=== PATIENT | male | born 1940 | race Caucasian/White ===

== ENCOUNTER 2017-11-18 16:54 | Observation (INO) | END 2017-11-21 13:13 | disposition home health service (06) ==

== ENCOUNTER 2018-03-15 07:51 | Day surgery (SDC) | payer MEDICARE, OTHER ==
[~2018-03-15] VITALS: Wt 76.0 kg
[~2018-03-15 07:51] MED LIST: ALLO300 PO; AMLO5 PO; ASPI325 PO; Augmentin 875-1 EACH PO; CARV25 PO; CARV3.125 PO; CARV6.25 PO; CITA20 PO; CLON.2 PO; CLON.3 PO; DILT60 PO; Desyrel50 MG PO; FURO40 PO; Klor-Con M1010 MEQ PO; LISI20 PO; LOVA40 PO; METO100ER PO; NAPR220; NIFE30ER PO; NIFE60ER; POTCHL20ER PO; SPIR25 PO; TAMS.4ER PO
[2018-03-15 09:12] LABS: BASOPHILS ABSOLUTE AUTO 0.25 K/mm3 (0.00-0.23); BASOPHILS PERCENT AUTO 1 % (0-2); EOSINOPHILS ABSOLUTE AUTO 1.13 K/mm3 (0.00-0.68); EOSINOPHILS PERCENT AUTO 5 % (0-6); Hematocrit 38.6 % (37.0-53.0); Hemoglobin 10.6 g/dL (13.5-17.5); IMMATURE GRAN ABSOLUTE AUTO 0.61 K/mm3 (0.00-0.10); IMMATURE GRAN PERCENT AUTO 3 % (0-1); LYMPHOCYTES ABSOLUTE AUTO 0.51 K/mm3 (0.84-5.20); LYMPHOCYTES PERCENT AUTO 2 % (21-46); MONOCYTES PERCENT AUTO 4 % (4-13); Mean Corpuscular HGB 18.3 pg (26.0-34.0); Mean Corpuscular HGB Conc 27.5 g/dL (31.5-36.5); Mean Corpuscular Volume 67 fL (80-100); Mean Platelet Volume 10.7 fL (9.1-12.4); NEUTROPHILS ABSOLUTE AUTO 19.62 K/mm3 (1.96-9.15); NEUTROPHILS PERCENT AUTO 86 % (41-73); NRBC ABSOLUTE 0.06 K/mm3 (0.00-0.02); NRBC Auto 0.3 /100 WBC (0.0-0.2); Platelet Count 989 K/mm3 (150-400); RDW Coefficient Variation 24.5 % (11.7-14.2); RDW Standard Deviation 52.6 fL (35.1-46.3); Red Blood Cell Count 5.78 M/mm3 (4.30-5.90); White Blood Cell Count 22.92 K/mm3 (4.00-11.30)
[2018-03-15 09:24] LABS: International Normalized Ratio 1.19; Prothrombin Time Results 12.1 Sec (9.7-11.5)
[2018-03-15] MEDS ORDERED: CLON.1 PO (09:53)
[2018-03-15 09:54] LABS: Anion Gap 12 mmol/L (6-16); Blood Urea Nitrogen 36 mg/dL (8-24); Bun/Creatinine Ratio 31.6 (12.0-20.0); CO2, Blood 18 mmol/L (21-32); Calcium, Blood 8.5 mg/dL (8.5-10.1); Chloride, Blood 112 mmol/L (98-108); Creatinine, Blood 1.14 mg/dL (0.60-1.20); Glomerular Filtration Rate >60 (60-); Glucose, Blood 148 mg/dL (70-99); Potassium, Blood 4.5 mmol/L (3.5-5.5); Sodium, Blood 142 mmol/L (136-145)
[2018-03-15] MEDS ORDERED: TAMS.4ER PO (09:54)
[2018-03-15] MEDS ORDERED: CITA20 PO (09:58)
== END 2018-03-15 17:39 | disposition home or self-care (01) ==
LOC: MHTC 07:51 → MEDS 07:51 → MHTC 07:52 → MEDS 17:39 → EDSTATUS 03-23 14:13
PROVIDERS: Internal Medicine Interventional Cardiology
PROC: 0JH604Z Insertion of Pacemaker, Single Chamber into Chest Subcutaneous Tissue and Fascia, Open Approach (ICD-10-PCS; principal; 2018-03-15)
PROC: 02HK3JZ Insertion of Pacemaker Lead into Right Ventricle, Percutaneous Approach (ICD-10-PCS; 2018-03-15)
DX: I48.2 Chronic atrial fibrillation (principal); R55 Syncope and collapse; I44.39 Other atrioventricular block; I10 Essential (primary) hypertension; E11.9 Type 2 diabetes mellitus without complications; Z87.891 Personal history of nicotine dependence
CPT/HCPCS: 33207; 71046; 80048; 85025; 85610; 85730; 93005; 93010; 99152; 99153; C1786; C1898; J0690; J1644; J2250; J3010; J7030; J7040; Q9967

== ENCOUNTER → 2018-10-23 | Outpatient (CLI) | payer MEDICARE, OTHER ==
[~2018-10-23] MED LIST changes: +CLON.1 PO
[2018-10-23 18:39] LABS: BASOPHILS ABSOLUTE AUTO 0.29 K/mm3 (0.00-0.23); BASOPHILS PERCENT AUTO 1 % (0-2); EOSINOPHILS ABSOLUTE AUTO 1.12 K/mm3 (0.00-0.68); EOSINOPHILS PERCENT AUTO 5 % (0-6); Hematocrit 44.3 % (37.0-53.0); Hemoglobin 11.6 g/dL (13.5-17.5); IMMATURE GRAN ABSOLUTE AUTO 0.57 K/mm3 (0.00-0.10); IMMATURE GRAN PERCENT AUTO 2 % (0-1); LYMPHOCYTES PERCENT AUTO 3 % (21-46); MONOCYTES PERCENT AUTO 4 % (4-13); Mean Corpuscular HGB 18.5 pg (26.0-34.0); Mean Corpuscular HGB Conc 26.2 g/dL (31.5-36.5); Mean Corpuscular Volume 71 fL (80-100); NEUTROPHILS PERCENT AUTO 85 % (41-73); NRBC ABSOLUTE 0.07 K/mm3 (0.00-0.02); NRBC Auto 0.3 /100 WBC (0.0-0.2); Platelet Count 652 K/mm3 (150-400); RDW Coefficient Variation 23.4 % (11.7-14.2); Red Blood Cell Count 6.28 M/mm3 (4.30-5.90); White Blood Cell Count 23.88 K/mm3 (4.00-11.30)
== END ==
LOC: LAB SHORT 18:09 → LAB 18:09
PROVIDERS: Internal Medicine Hematology & Oncology
DX: C94.6 Myelodysplastic disease, not elsewhere classified (principal)
CPT/HCPCS: 85025

== ENCOUNTER 2019-01-24 16:04 | Inpatient (IN) | payer MEDICARE, OTHER ==
[~2019-01-24] VITALS: Ht 170.2 cm; Wt 78.7 kg
[~2019-01-24 16:04] MED LIST changes: -Klor-Con M1010 MEQ PO; +POTCHL10ER PO
[2019-01-24 17:08] LABS: BASOPHILS ABSOLUTE AUTO 0.19 K/mm3 (0.00-0.23); BASOPHILS PERCENT AUTO 1 % (0-2); EOSINOPHILS ABSOLUTE AUTO 1.09 K/mm3 (0.00-0.68); EOSINOPHILS PERCENT AUTO 4 % (0-6); Hemoglobin 7.8 g/dL (13.5-17.5); IMMATURE GRAN PERCENT AUTO 4 % (0-1); LYMPHOCYTES ABSOLUTE AUTO 0.37 K/mm3 (0.84-5.20); LYMPHOCYTES PERCENT AUTO 1 % (21-46); MONOCYTES ABSOLUTE AUTO 0.95 K/mm3 (0.16-1.47); MONOCYTES PERCENT AUTO 3 % (4-13); Mean Corpuscular HGB 17.6 pg (26.0-34.0); Mean Corpuscular Volume 68 fL (80-100); NEUTROPHILS ABSOLUTE AUTO 27.66 K/mm3 (1.96-9.15); NEUTROPHILS PERCENT AUTO 88 % (41-73); Platelet Count 721 K/mm3 (150-400); RDW Coefficient Variation 24.5 % (11.7-14.2); RDW Standard Deviation 56.7 fL (35.1-46.3); Red Blood Cell Count 4.43 M/mm3 (4.30-5.90); White Blood Cell Count 31.36 K/mm3 (4.00-11.30)
[2019-01-24 17:16] LABS: Albumin, Blood 3.6 g/dL (3.4-5.0); Albumin/Globulin Ratio 1.1 (0.8-1.8); Bilirubin, Total 1.1 mg/dL (0.1-1.0); Bun/Creatinine Ratio 35.7 (12.0-20.0); Calcium, Blood 8.7 mg/dL (8.5-10.1); Creatinine, Blood 1.4 mg/dL (0.60-1.20); Globulin, Blood 3.3 g/dL (2.2-4.0); Potassium, Blood 6.7 mmol/L (3.5-5.5); Total Protein, Blood 6.9 g/dL (6.4-8.2)
[2019-01-24 17:40] LABS: Mean Platelet Volume 11.5 fL (9.1-12.4)
[2019-01-24] MEDS ORDERED: [UNRECOGNIZED DRUG - CODE] PO (18:20)
[2019-01-24] MEDS ORDERED: [UNRECOGNIZED DRUG - CODE] PO (18:22)
[2019-01-24] MEDS ORDERED: [UNRECOGNIZED DRUG - CODE] PO (18:28)
[2019-01-24 19:01] LABS: Creatine Kinase MB 2.6 ng/mL (0.0-3.6); Creatine Kinase MB Index 9.6 (0.0-4.0)
[2019-01-24] MEDS ORDERED: NAPR220 PO (19:02)
[2019-01-24] MEDS ORDERED: ALPR.5 PO (19:04)
--- NOTE | 2019-01-24 21:00 | NUR ---
ADMIT PT ARRIVED TO ICU 15 AT 2024 VIA ER BED. PT TRANSFER TO ICU BED. PT IS ALERT, ORIENTED, AND FOLLOWING COMMANDS APPROPRIATELY. PT IS HARD OF HEARING. PT ON ROOM AIR. VITAL SIGNS STABLE. PT WITH PACEMAKER SET AT 60. 2ND IV STARTED AND BLOOD CULTURES DRAWN FROM SITE. NS STARTED AT 125 ML/HR. PT USING URINAL TO VOID WHILE LAYING IN BED. PT WITH LEFT KNEE BRACE ON. FAMILY AT BEDSIDE AT THIS TIME. WILL CONTINUE TO MONITOR.
[2019-01-24 22:33] LABS: Albumin, Blood 3.6 g/dL (3.4-5.0); Albumin/Globulin Ratio 1.2 (0.8-1.8); Bun/Creatinine Ratio 34.5 (12.0-20.0); Calcium, Blood 8.9 mg/dL (8.5-10.1); Creatinine, Blood 1.39 mg/dL (0.60-1.20); Globulin, Blood 2.9 g/dL (2.2-4.0); Magnesium, Blood 2.1 mg/dL (1.6-2.4); Potassium, Blood 5.8 mmol/L (3.5-5.5); Total Protein, Blood 6.5 g/dL (6.4-8.2)
[2019-01-24 22:35] LABS: Phosphorus, Blood 3.6 mg/dL (2.5-4.9)
--- NOTE | 2019-01-24 23:50 | NUR ---
DR EZIO HOLGUIN CONSULT CALLED. MULTIPLE NEW ORDERS RECIEVED. SEE ORDER HISTORY. EZIO TO SEE PT IN AM.
[2019-01-25 03:01] LABS: BASOPHILS ABSOLUTE AUTO 0.22 K/mm3 (0.00-0.23); BASOPHILS PERCENT AUTO 1 % (0-2); EOSINOPHILS ABSOLUTE AUTO 0.86 K/mm3 (0.00-0.68); EOSINOPHILS PERCENT AUTO 3 % (0-6); Hematocrit 29.9 % (37.0-53.0); Hemoglobin 7.8 g/dL (13.5-17.5); IMMATURE GRAN ABSOLUTE AUTO 1.19 K/mm3 (0.00-0.10); IMMATURE GRAN PERCENT AUTO 4 % (0-1); LYMPHOCYTES ABSOLUTE AUTO 0.33 K/mm3 (0.84-5.20); LYMPHOCYTES PERCENT AUTO 1 % (21-46); MONOCYTES PERCENT AUTO 4 % (4-13); Mean Corpuscular HGB 17.5 pg (26.0-34.0); Mean Corpuscular HGB Conc 26.1 g/dL (31.5-36.5); Mean Corpuscular Volume 67 fL (80-100); NEUTROPHILS PERCENT AUTO 88 % (41-73); NRBC ABSOLUTE 0.27 K/mm3 (0.00-0.02); NRBC Auto 0.8 /100 WBC (0.0-0.2); Platelet Count 692 K/mm3 (150-400); RDW Coefficient Variation 25.2 % (11.7-14.2); RDW Standard Deviation 55.8 fL (35.1-46.3); Red Blood Cell Count 4.45 M/mm3 (4.30-5.90)
[2019-01-25 03:08] LABS: Mean Platelet Volume 10.9 fL (9.1-12.4)
[2019-01-25 03:21] LABS: CPK Creatine Kinase 28 U/L (39-308); Creatine Kinase MB 2.8 ng/mL (0.0-3.6); Troponin I <0.015 ng/mL (0.000-0.040)
[2019-01-25 03:34] LABS: Alanine Aminotransfer (ALT/SGP 19 U/L (12-78); Albumin, Blood 3.6 g/dL (3.4-5.0); Albumin/Globulin Ratio 1.2 (0.8-1.8); Alk Phos 142 U/L (50-136); Anion Gap 6 mmol/L (6-16); Aspartate Aminotrans (AST/SGOT 14 U/L (12-37); Bilirubin, Total 1.3 mg/dL (0.1-1.0); Blood Urea Nitrogen 46 mg/dL (8-24); Bun/Creatinine Ratio 32.4 (12.0-20.0); CO2, Blood 20 mmol/L (21-32); Calcium, Blood 8.8 mg/dL (8.5-10.1); Chloride, Blood 113 mmol/L (98-108); Creatinine, Blood 1.42 mg/dL (0.60-1.20); Glomerular Filtration Rate 51 (60-); Glucose, Blood 103 mg/dL (70-99); Potassium, Blood 6.1 mmol/L (3.5-5.5); Sodium, Blood 139 mmol/L (136-145); Total Protein, Blood 6.6 g/dL (6.4-8.2)
--- NOTE | 2019-01-25 05:49 | NUR ---
SHIFT SUMMARY PT DOING BETTER THIS AM. PT WITH INCREASING WORK OF BREATHING FOR SOME TIME THIS SHIFT. IV FLUIDS DC'D AND PT RECIEVED BUMEX IV. PT REPORTS LESS SOB AT THIS TIME. PT HAS REMAINED ALERT, ORIENTED, AND AWAKE THROUGHOUT THE SHIFT. PT RESTLESS AND FIDGETING IN BED. PT HAS DENIED PAIN OR DISCOMFORT. PT ON 3L O2 NC. VITAL SIGNS HAVE REMAINED STABLE. PT USING URINAL TO VOID FREQUENTLY. LEFT KNEE BRACE REMAINS IN PLACE. WILL CONTINUE TO MONITOR AND REPORT OFF TO ONCOMING RN.
--- NOTE | 2019-01-25 07:45 | NUR ---
DR. HOLGUIN CALL TO DR. HOLGUIN WITH POTASSIUM LEVEL. ORDERS TO REPEAT LEVEL AT 1300 AND CALL HIM WITH RESULTS. NO ADDITIONAL ORDERS RECEIVED AT THIS TIME.
--- NOTE | 2019-01-25 08:00 | NUR ---
ASSUMED CARE ASSUMED CARE OF PT AT 0700. REPORT RECEIVED FROM ANA SCHULTZ. PT AROUSES TO VERBAL STIMULUS, VERY HARD OF HEARING. PT ORIENTED X4, FOLLOWING DIRECTIONS APPROPRIATELY. PT DENIES ANY PAIN, NAUSEA, SHORTNESS OF BREATH. MONITOR SHOWS SINUS RHYTHM WITH HR 70'S, BP ELEVATED 170'S SYSTOLIC, SPO2 >92% ON 2L/MIN NC. PT HAS PIV X2 SALINE LOCKED. PT HAS BRACE TO LEFT KNEE WHICH HE WEARS AT HOME. CALL LIGHT WITHIN REACH OF PT, INSTRUCTED TO CALL FOR ASSISTANCE BEFORE AMBULATING. WILL CONTINUE TO MONITOR PT CLOSELY.
--- NOTE | 2019-01-25 11:20 | NUR ---
ECHOCARDIOGRAM COMPLETE
[2019-01-25 11:54] LABS: CPK Creatine Kinase 25 U/L (39-308); Creatine Kinase MB 2.4 ng/mL (0.0-3.6); Creatine Kinase MB Index 9.6 (0.0-4.0); Troponin I <0.015 ng/mL (0.000-0.040)
--- NOTE | 2019-01-25 12:40 | NUR ---
DR. HOLGUIN/DR. LYNN HOLGUIN NOTIFIED OF POTASSIUM LEVEL, PT ASKING TO BE DISCHARGED. DR. HOLGUIN STATES FOR LISINOPRIL TO BE DC'D AND FOR PT TO FOLLOW UP WITH HIM IN THE OFFICE ON TUESDAY. DR. BAILEY ROUNDED ON PT AT THIS TIME, STATES HE WILL PUT IN ORDERS FOR DISCHARGE. PT UPDATED.
[2019-01-25] MEDS ORDERED: ACET325 PO (13:43)
[2019-01-25] MEDS ORDERED: NICO21TP TOP (13:44)
[2019-01-25] MEDS ORDERED: ONDA4ODT MM (13:44)
[2019-01-25] MEDS ORDERED: HYDR10 PO (13:44)
[2019-01-25] MEDS ORDERED: ATOR40TA PO (13:47)
--- NOTE | 2019-01-25 14:30 | NUR ---
DISCHARGE DISCHARGE INSTRUCTIONS PROVIDED TO PT, PT'S , AND PT'S SON AT BEDSIDE. PT DISCHARGED TO HOME WITH SON AND . ALL QUESTIONS ANSWERED. APPOINTMENT INFO GIVEN FOR F/U WITH DR. HOLGUIN TUESDAY AT 1100.
== END 2019-01-25 14:34 | disposition home or self-care (01) | DRG 640 ==
LOC: ER 16:04 → ICUW 18:37
PROVIDERS: Internal Medicine Nephrology; Physician Assistant; ADMIT Family Medicine
DX: E87.5 Hyperkalemia (principal); N17.0 Acute kidney failure with tubular necrosis; I50.32 Chronic diastolic (congestive) heart failure; I13.0 Hypertensive heart and chronic kidney disease with heart failure and stage 1 through stage 4 chronic kidney disease, or unspecified chronic kidney disease; E87.2 Acidosis; I70.1 Atherosclerosis of renal artery; J44.9 Chronic obstructive pulmonary disease, unspecified; E11.22 Type 2 diabetes mellitus with diabetic chronic kidney disease; Z85.46 Personal history of malignant neoplasm of prostate; Z92.3 Personal history of irradiation; M19.90 Unspecified osteoarthritis, unspecified site; F17.228 Nicotine dependence, chewing tobacco, with other nicotine-induced disorders; I48.91 Unspecified atrial fibrillation; D46.9 Myelodysplastic syndrome, unspecified; M10.9 Gout, unspecified; G47.33 Obstructive sleep apnea (adult) (pediatric); N18.3 Chronic kidney disease, stage 3 (moderate); E87.70 Fluid overload, unspecified
CPT/HCPCS: 36415; 71046; 76770; 80053; 82550; 82553; 83605; 83735; 84100; 84132; 84145; 84443; 84484; 85025; 93005; 93010; 93306; 96372-59; 96374; 96375; 99285-25; C9113; G0103; J0610; J0881; J1650; J1815; J7030

== ENCOUNTER 2019-02-11 14:16 | Inpatient (IN) | payer MEDICARE, OTHER ==
[~2019-02-11] VITALS: Ht 170.2 cm; Wt 79.8 kg
[~2019-02-11 14:16] MED LIST changes: +ACET325 PO; +ALPR.5 PO; +ATOR40TA PO; +HYDR10 PO; +NAPR220 PO; +NICO21TP TOP; +ONDA4ODT MM; +[UNRECOGNIZED DRUG - CODE] PO; +[UNRECOGNIZED DRUG - CODE] PO; +[UNRECOGNIZED DRUG - CODE] PO
[2019-02-11 14:59] LABS: Hemoglobin 6.3 g/dL (13.5-17.5); NRBC ABSOLUTE 0.18 K/mm3 (0.00-0.02); NRBC Auto 0.7 /100 WBC (0.0-0.2); Platelet Count 993 K/mm3 (150-400); White Blood Cell Count 26.75 K/mm3 (4.00-11.30)
[2019-02-11 15:05] LABS: Hematocrit 24.4 % (37.0-53.0); Mean Corpuscular HGB 17.4 pg (26.0-34.0); Mean Corpuscular HGB Conc 25.8 g/dL (31.5-36.5); Mean Corpuscular Volume 67 fL (80-100); Mean Platelet Volume 11.3 fL (9.1-12.4); RDW Coefficient Variation 24.9 % (11.7-14.2); RDW Standard Deviation 56.4 fL (35.1-46.3); Red Blood Cell Count 3.63 M/mm3 (4.30-5.90)
[2019-02-11 15:06] LABS: Alanine Aminotransfer (ALT/SGP 25 U/L (12-78); Albumin, Blood 3.2 g/dL (3.4-5.0); Alk Phos 141 U/L (50-136); Anion Gap 6 mmol/L (6-16); Aspartate Aminotrans (AST/SGOT 25 U/L (12-37); Bilirubin, Total 0.8 mg/dL (0.1-1.0); Blood Urea Nitrogen 40 mg/dL (8-24); CO2, Blood 22 mmol/L (21-32); Calcium, Blood 8.7 mg/dL (8.5-10.1); Chloride, Blood 108 mmol/L (98-108); Creatinine, Blood 1.08 mg/dL (0.60-1.20); Globulin, Blood 3.2 g/dL (2.2-4.0); Glomerular Filtration Rate >60 (60-); Glucose, Blood 99 mg/dL (70-99); Potassium, Blood 4.9 mmol/L (3.5-5.5); Sodium, Blood 136 mmol/L (136-145); Total Protein, Blood 6.4 g/dL (6.4-8.2)
[2019-02-11 15:11] LABS: International Normalized Ratio 1.17; Prothrombin Time Results 12.2 Sec (9.7-11.5)
[2019-02-11] MEDS ORDERED: VITAMIN D5000 UNIT PO (15:16)
[2019-02-11 16:18] LABS: BAND PERCENT MAN 6 % (0-8); BASOPHILS PERCENT MAN 0 % (0-2); EOSINOPHILS ABSOLUTE MAN 1.33 K/mm3 (0.00-0.68); EOSINOPHILS PERCENT MAN 5 % (0-6); LYMPHOCYTES ABSOLUTE MAN 0.53 K/mm3 (0.84-5.20); LYMPHOCYTES PERCENT MAN 2 % (21-46); METAMYELOCYTE ABSOLUTE MAN 0.26 K/mm3 (0.00-0.00); METAMYELOCYTE PERCENT MAN 1 % (0-0); MONOCYTES ABSOLUTE MAN 0.26 K/mm3 (0.16-1.47); MONOCYTES PERCENT MAN 1 % (4-13); MYELOCYTE ABSOLUTE MAN 0.26 K/mm3 (0.00-0.00); MYELOCYTE PERCENT MAN 1 % (0-0); NEUTROPHILS ABSOLUTE MAN 24.07 K/mm3 (1.96-9.15); SEG NEUTROPHILS PERCENT MAN 84 % (41-73); TOTAL CELLS COUNTED 100
[2019-02-11 18:42] LABS: Hemoglobin 6.8 g/dL (13.5-17.5)
[2019-02-11 18:43] LABS: Hematocrit 25.9 % (37.0-53.0)
--- NOTE | 2019-02-11 19:35 | NUR ---
FINISHED FIRST UNIT OF BLOOD PT VITALS DOCUMENTED ON ED PAPER IN CHART. INPUT ON PUMP DOCUMENTED IN INTAKE & OUTPUT. PT TOLERATED WELL. NO NEGATIVE REACTIONS
--- NOTE | 2019-02-11 19:37 | NUR ---
TRANSFER NOTE PT TRANSFERED FROM ED. PT RECEIVING UNIT OF BLOOD, BEGAN IN ED. 78 YR OLD MALE. FULL CODE. HX:BLACK TARRY STOOLS. GI CONSULT W/DR. IGLESIAS WHO WILL PERFORM AN UPPER AND LOWER ENDOSCOPY. PT SEVERELY ANEMIC, MAY HAVE GI BLEED. DIVERTICULITIS NOTICED ON CT SCAN. PT ORIENTED TO UNIT. CALL LIGHT WITHIN REACH. IS HEALTH CARE PROXY. 1 STANDBY ASSIST TO BSC. PT IS VERY WEAK. HX: HTN, COPD, CKD, CHF, GOUT, DM 2. ACHS. CPAP AT HOME.
[2019-02-12 01:09] LABS: Hematocrit 27.4 % (37.0-53.0); Hemoglobin 7.4 g/dL (13.5-17.5)
--- NOTE | 2019-02-12 07:38 | NUR ---
02/12/19 0600 AWAKENED FOR AM MED. STATES HE SLEPT WELL AND GENERALLY FEELS BETTER THIS AM. VITALS STABLE. NO STOOLS OR EMESIS THIS SHIFT. HAS RECEIVED 2 UNITS OF PRBCS SINCE ADMISSSION.
[2019-02-12 07:58] LABS: Hematocrit 30.4 % (37.0-53.0); Hemoglobin 7.7 g/dL (13.5-17.5); Mean Corpuscular HGB 18.9 pg (26.0-34.0); Mean Corpuscular HGB Conc 25.3 g/dL (31.5-36.5); NRBC ABSOLUTE 0.28 K/mm3 (0.00-0.02); NRBC Auto 0.8 /100 WBC (0.0-0.2); Platelet Count 865 K/mm3 (150-400); RDW Coefficient Variation 25.9 % (11.7-14.2); RDW Standard Deviation 64.6 fL (35.1-46.3); Red Blood Cell Count 4.08 M/mm3 (4.30-5.90)
[2019-02-12 08:15] LABS: Mean Corpuscular Volume 75 fL (80-100)
[2019-02-12 08:41] LABS: Magnesium, Blood 2.2 mg/dL (1.6-2.4)
[2019-02-12 08:45] LABS: Alanine Aminotransfer (ALT/SGP 21 U/L (12-78); Albumin, Blood 3.3 g/dL (3.4-5.0); Alk Phos 144 U/L (50-136); Anion Gap 8 mmol/L (6-16); Aspartate Aminotrans (AST/SGOT 16 U/L (12-37); Blood Urea Nitrogen 38 mg/dL (8-24); Bun/Creatinine Ratio 31.7 (12.0-20.0); CO2, Blood 22 mmol/L (21-32); Calcium, Blood 8.2 mg/dL (8.5-10.1); Chloride, Blood 107 mmol/L (98-108); Globulin, Blood 3.2 g/dL (2.2-4.0); Glomerular Filtration Rate >60 (60-); Glucose, Blood 104 mg/dL (70-99); Potassium, Blood 5.1 mmol/L (3.5-5.5); Sodium, Blood 137 mmol/L (136-145); Total Protein, Blood 6.5 g/dL (6.4-8.2)
[2019-02-12 09:08] LABS: BASOPHILS ABSOLUTE MAN 0.33 K/mm3 (0.00-0.23); BASOPHILS PERCENT MAN 1 % (0-2); BLASTS PERCENT MAN 1 % (0-0); EOSINOPHILS ABSOLUTE MAN 0.67 K/mm3 (0.00-0.68); EOSINOPHILS PERCENT MAN 2 % (0-6); LYMPHOCYTES ABSOLUTE MAN 0.33 K/mm3 (0.84-5.20); LYMPHOCYTES PERCENT MAN 1 % (21-46); MONOCYTES ABSOLUTE MAN 1.01 K/mm3 (0.16-1.47); MONOCYTES PERCENT MAN 3 % (4-13); MYELOCYTE ABSOLUTE MAN 0.67 K/mm3 (0.00-0.00); MYELOCYTE PERCENT MAN 2 % (0-0); NEUTROPHILS ABSOLUTE MAN 30.33 K/mm3 (1.96-9.15); SEG NEUTROPHILS PERCENT MAN 90 % (41-73); TOTAL CELLS COUNTED 100
[2019-02-12 13:25] LABS: Hematocrit 28.6 % (37.0-53.0); Hemoglobin 7.5 g/dL (13.5-17.5)
--- NOTE | 2019-02-12 17:43 | NUR ---
HE HAD A CL BREAKFAST AFTER SLEEPING IN. HE THEN HAD IE/WATER ONLY UNTIL 1300, THEN NPO. HE LEFT FOR AN EGD AT 1715. AND SON WENT WITH HIM TO DAY SURGERY. HE DID NOT ANSWER CLEARLY WHAT PROCEDURE HE IS GOING FOR. HE HAS SLEPT ALL DAY. HE IS PLEASANT. HE WAS INCONTINENT OF URINE. NO BM TODAY.
--- NOTE | 2019-02-12 18:07 | NUR ---
02/12/19 1807 Misael Mckeon History, Chart, Medications and Allergies reviewed before start of procedure.MONITOR INTACT WITH CONTINUOUS PULSE OXIMETRY AND INTERMITTENT BP.3-LEAD EKG REVIEWED WITH PHYSICIAN PRIOR TO START OF PROCEDURE.O2 VIA N/C INTACT THROUGHOUT SEDATION/PROCEDURE. Patient confirms NPO status and agrees with scheduled surgery.See Anesthesia record.
--- NOTE | 2019-02-12 19:34 | NUR ---
RETURNED TO FROM DAY SURGERY AT 1850. VSS. O2 FLOW 6L THOUGH. FAMILY HAS LEFT BUT NOT BEFORE CAME AND SPOKE WITH THEM. NO ABNORMALITIES SEEN. BOWELL PREP FOR A COLONOSCOPY WILL START IN AM.
--- NOTE | 2019-02-13 05:19 | NUR ---
LEISURE STUDIES PROFESSOR SUMMARY NO ACUTE CHANGES THIS SHIFT. PT AAOX2, PLEASANT AND COOPERATIVE WITH CARE. 1 PERSON ASSIST W/ FWW TO BATHROOM. PT REQUIRING MORE O2 AFTER BEING SEDATED DURING ENDO. PT WAS AT 6L O2 VIA NC AT START OF SHIFT, HAVE BEEN ABLE TO TITRATE DOWN TO 4L TONIGHT. O2 SATS STAYING ABOVE 90%. PT ON WATER AND ICE CHIPS ONLY STARTING AT 0500 AND WILL BE NPO AT 1400 FOR COLONOSCOPY. WILL START BOWEL PREP AT 0700. VSS, WILL CONTINUE TO MONITOR.
[2019-02-13 05:32] LABS: BASOPHILS ABSOLUTE AUTO 0.25 K/mm3 (0.00-0.23); BASOPHILS PERCENT AUTO 1 % (0-2); EOSINOPHILS ABSOLUTE AUTO 0.44 K/mm3 (0.00-0.68); EOSINOPHILS PERCENT AUTO 1 % (0-6); Hematocrit 28.1 % (37.0-53.0); Hemoglobin 7.3 g/dL (13.5-17.5); IMMATURE GRAN ABSOLUTE AUTO 1.83 K/mm3 (0.00-0.10); IMMATURE GRAN PERCENT AUTO 5 % (0-1); LYMPHOCYTES PERCENT AUTO 2 % (21-46); MONOCYTES ABSOLUTE AUTO 1.37 K/mm3 (0.16-1.47); MONOCYTES PERCENT AUTO 4 % (4-13); Mean Corpuscular HGB 18.6 pg (26.0-34.0); Mean Platelet Volume 11.3 fL (9.1-12.4); NEUTROPHILS ABSOLUTE AUTO 32.45 K/mm3 (1.96-9.15); NEUTROPHILS PERCENT AUTO 88 % (41-73); NRBC ABSOLUTE 0.38 K/mm3 (0.00-0.02); RDW Standard Deviation 63.3 fL (35.1-46.3); Red Blood Cell Count 3.92 M/mm3 (4.30-5.90); White Blood Cell Count 36.94 K/mm3 (4.00-11.30)
[2019-02-13 05:34] LABS: Mean Corpuscular Volume 72 fL (80-100)
[2019-02-13 05:35] LABS: Platelet Count 1056 K/mm3 (150-400)
[2019-02-13 06:04] LABS: BAND PERCENT MAN 2 % (0-8); BASOPHILS PERCENT MAN 0 % (0-2); EOSINOPHILS ABSOLUTE MAN 1.47 K/mm3 (0.00-0.68); EOSINOPHILS PERCENT MAN 4 % (0-6); LYMPHOCYTES ABSOLUTE MAN 0.36 K/mm3 (0.84-5.20); LYMPHOCYTES PERCENT MAN 1 % (21-46); MONOCYTES ABSOLUTE MAN 0.36 K/mm3 (0.16-1.47); MONOCYTES PERCENT MAN 1 % (4-13); MYELOCYTE ABSOLUTE MAN 0.36 K/mm3 (0.00-0.00); MYELOCYTE PERCENT MAN 1 % (0-0); NEUTROPHILS ABSOLUTE MAN 34.35 K/mm3 (1.96-9.15); SEG NEUTROPHILS PERCENT MAN 91 % (41-73); TOTAL CELLS COUNTED 100
[2019-02-13 06:11] LABS: Albumin, Blood 3.3 g/dL (3.4-5.0); Albumin/Globulin Ratio 1.1 (0.8-1.8); Bilirubin, Total 0.7 mg/dL (0.1-1.0); Creatinine, Blood 1.86 mg/dL (0.60-1.20); Globulin, Blood 3.1 g/dL (2.2-4.0); Potassium, Blood 5.1 mmol/L (3.5-5.5); Total Protein, Blood 6.4 g/dL (6.4-8.2)
--- NOTE | 2019-02-13 08:34 | NUR ---
ivf rate increased to 100/hr. drinking his 4th glass of colyte. no results yet.
[2019-02-13 16:37] LABS: IMMATURE RETIC FRACTION 27.9 % (2.3-16.0); RETIC HGB EQUIVALENT 16.7 pg (28.20-36.60); RETICULOCYTE ABSOLUTE 0.101 M/mm3 (0.0200-0.1100); RETICULOCYTE COUNT PERCENT 3.73 % (0.50-2.50)
--- NOTE | 2019-02-13 16:48 | NUR ---
HE FINISHED HIS COLYTE ABOUT NOON, DRINKING EVERY BIT. HE IS NOT CLEAR THOUGH. I TRIED CALLING 'S CELL PHONE. NO ANSWER. HE IS IN A PROCEDURE. LEFT WITH DIANN IN DAY SURGERY. SHE WILL LET KNOW THAT QUANG IS NOT CLEAR. HE REMAINS NPO SINCE 1400.
[2019-02-13 16:51] LABS: Percent Saturation 23.1 % (20.0-50.0)
--- NOTE | 2019-02-13 18:50 | NUR ---
HIS COLONOSCOPY WAS CANCELLED BECAUSE AFTER COMPLETING HIS GALLON OF COLYTE HE WAS NOT CLEAR. CAME TO SPEAK WITH HIM AND HIS FAMILY. HE TOLD THEM WE WOULD FEED HIM SOME PUDDING AND THINGS BUT HAS NOT LEFT NEW ORDERS YET. ALSO I BELIEVE SPOKE WITH ON THE PHONE. PATIENT HAS SEEN A REGISTERED ART THERAPIST OUTPT AND HAS ANOTHER APPT THE OF THIS MONTH. I UNIT OF BLOOD ALSO GIVEN TODAY WITHOUT ANY PROBLEMS.
--- NOTE | 2019-02-14 03:57 | NUR ---
SHIFT SUMMARY: 78 Y/O MALE RESTED COMFORTABLY ALL EVENING. PT WEARING O2 VIA OXIMETER WITH SATS AVERAGING 95%. PT ALERT AND ORIENTED X 3 AND ABLE TO FOLLOW ALL SIMPLE VERBAL COMMANDS. PT TOLERATED FULL LIQUID DIET TONIGHT AND SCHEDULED CLEAR LIQUID DIET TODAY. PT AND FAMILY ARE AWARE OF COLONOSCOPY RESCHEDULED TO TUESDAY PM. PTS TELEMETRY REFLECTS A-FIB WITH HEART RATE 76, OCCASIONALLY PACED AT 68. PT HAD ONCE LOOSE WATERY BLACK STOOL THIS SHIFT, MODERATE AMOUNT. PT DENIES PAIN OR NAUSEA. PTS BED ALARM APPLIED, BED LOW POSITION, CALL LIGHT AT SIDE.
[2019-02-14 05:37] LABS: BASOPHILS ABSOLUTE AUTO 0.29 K/mm3 (0.00-0.23); BASOPHILS PERCENT AUTO 1 % (0-2); EOSINOPHILS ABSOLUTE AUTO 0.66 K/mm3 (0.00-0.68); EOSINOPHILS PERCENT AUTO 2 % (0-6); Hemoglobin 8.3 g/dL (13.5-17.5); IMMATURE GRAN ABSOLUTE AUTO 1.91 K/mm3 (0.00-0.10); IMMATURE GRAN PERCENT AUTO 5 % (0-1); LYMPHOCYTES ABSOLUTE AUTO 0.48 K/mm3 (0.84-5.20); LYMPHOCYTES PERCENT AUTO 1 % (21-46); MONOCYTES PERCENT AUTO 4 % (4-13); NEUTROPHILS ABSOLUTE AUTO 33.79 K/mm3 (1.96-9.15); NEUTROPHILS PERCENT AUTO 87 % (41-73); NRBC Auto 1.3 /100 WBC (0.0-0.2); White Blood Cell Count 38.83 K/mm3 (4.00-11.30)
[2019-02-14 05:44] LABS: Hematocrit 30.2 % (37.0-53.0); Mean Corpuscular HGB 19.5 pg (26.0-34.0); Mean Corpuscular HGB Conc 27.5 g/dL (31.5-36.5); Mean Corpuscular Volume 71 fL (80-100); RDW Coefficient Variation 26.6 % (11.7-14.2); RDW Standard Deviation 64.4 fL (35.1-46.3); Red Blood Cell Count 4.25 M/mm3 (4.30-5.90)
[2019-02-14 05:46] LABS: Platelet Count 1006 K/mm3 (150-400)
[2019-02-14 06:08] LABS: Albumin, Blood 3.2 g/dL (3.4-5.0); Bilirubin, Total 0.6 mg/dL (0.1-1.0); Bun/Creatinine Ratio 31.2 (12.0-20.0); Calcium, Blood 7.7 mg/dL (8.5-10.1); Creatinine, Blood 1.73 mg/dL (0.60-1.20); Globulin, Blood 3.1 g/dL (2.2-4.0); Potassium, Blood 4.9 mmol/L (3.5-5.5); Total Protein, Blood 6.3 g/dL (6.4-8.2)
--- NOTE | 2019-02-14 12:40 | NUR ---
PT TO HAVE COLONOSCOPY 02/15/19 [address]WE[address] SCHNEIDER. PREP TO BE STARTED IN A.M. AND TO BE TAKEN UNTIL CLEAR RESULTS ARE PRESENT.
--- NOTE | 2019-02-14 18:41 | NUR ---
SHIFT SUMMARY QUIET, PLEASANT. OOB TO CHAIR 1 ASSIST. USING URINAL INCONTINENT AT TIMES. DISCHARGE PLAN HOME HEALTH. PT'S NIECE IS CONCERNED THAT PT WILL BE UNABLE TO GO HOME ALONE SHE LIVES OUT OF STATE. JEFF (MASON LINER AWARE) PT DENIES ANY PAIN OR OTHER C/O.
--- NOTE | 2019-02-14 18:47 | NUR ---
SHIFT SUMMARY CONFUSED AT TIMES. OOB TO CHAIR 1 ASSIST. 6L PER OXIMIZER O2 SATS 95%. PT DENIES ANY PAIN. TELE PACED @72 ATRIAL FLUTTER. CHRONIC ELEVATED WBS FOR PAST SEVERAL YEARS. WILL PREP FOR COLONOSCOPY IN A.M. COLONOSCOPY SCHEDULED FOR 4-6PM WITH DR. SCHNEIDER.
--- NOTE | 2019-02-14 22:20 | NUR ---
1930 PTS IV IN RIGHT WRIST NOTED TO BE SQ WITH LARGE AMOUNT EDEMA AT FOREARM/SHOULDER NOTED (REDDENED AREA NOTED INNER ASPECT OF ELBOW 3 X 3 CM). THIS NURSE REMOVED ENTIRE CATHETER INTACT AND APPLIED PRESSURE DRESSING. LIBRADO GONZALEZ RN, CHARGE NURSE ADVISED. PTS RIGHT ARM ELEVATED ON PILLOW. PT ABLE TO MOVE ALL FINGERS AND WRIST (NO RINGS WORN AT THIS TIME).
[2019-02-15 05:01] LABS: BASOPHILS ABSOLUTE AUTO 0.27 K/mm3 (0.00-0.23); BASOPHILS PERCENT AUTO 1 % (0-2); EOSINOPHILS ABSOLUTE AUTO 0.67 K/mm3 (0.00-0.68); EOSINOPHILS PERCENT AUTO 2 % (0-6); Hematocrit 28.2 % (37.0-53.0); Hemoglobin 7.7 g/dL (13.5-17.5); Mean Corpuscular HGB 19.6 pg (26.0-34.0); Mean Corpuscular HGB Conc 27.3 g/dL (31.5-36.5); Mean Corpuscular Volume 72 fL (80-100); NRBC ABSOLUTE 0.21 K/mm3 (0.00-0.02); NRBC Auto 0.7 /100 WBC (0.0-0.2); Platelet Count 765 K/mm3 (150-400); RDW Coefficient Variation 26.9 % (11.7-14.2); RDW Standard Deviation 66.6 fL (35.1-46.3); Red Blood Cell Count 3.92 M/mm3 (4.30-5.90); White Blood Cell Count 32.23 K/mm3 (4.00-11.30)
[2019-02-15 05:04] LABS: IMMATURE GRAN ABSOLUTE AUTO 1.52 K/mm3 (0.00-0.10); IMMATURE GRAN PERCENT AUTO 5 % (0-1); LYMPHOCYTES ABSOLUTE AUTO 0.49 K/mm3 (0.84-5.20); LYMPHOCYTES PERCENT AUTO 2 % (21-46); MONOCYTES ABSOLUTE AUTO 1.42 K/mm3 (0.16-1.47); MONOCYTES PERCENT AUTO 4 % (4-13); NEUTROPHILS ABSOLUTE AUTO 27.86 K/mm3 (1.96-9.15); NEUTROPHILS PERCENT AUTO 87 % (41-73)
[2019-02-15 05:29] LABS: Bun/Creatinine Ratio 33.5 (12.0-20.0); Calcium, Blood 7.8 mg/dL (8.5-10.1); Creatinine, Blood 1.58 mg/dL (0.60-1.20); Potassium, Blood 4.5 mmol/L (3.5-5.5)
--- NOTE | 2019-02-15 07:59 | NUR ---
SHIFT SUMMARY: 78 Y/O MALE VERY RESTLESS ALL NIGHT WITH MULTIPLE ATTEMPTS TO CLIMB OOB, REMOVING GOWN/TELEMETRY. PT IS ALERT AND ORIENTED X 1 ONLY WITH FREQUENT REORIENTATION REQUIRED BY STAFF. PTS IV RIGHT ARM SQ AT BEGINNING OF SHIFT WITH +3 EDEMA NOTED (DECREASED EDEMA NOTED AFTER ARM WAS ELEVATED ALL EVENING ON ONE PILLOW). PT IS SCHEDULED FOR COLONOSCOPY 02/15 IN LATE AFTERNOON AFTER GETTING G0LYTE PREP. PT WEARING OXIMIZER AT 8L/M LAST NIGHT WITH SATS AVERAGING 91%. PT DENIES PAIN OR NAUSEA. PTS BED ALARM APPLIED, BED LOW POSITION, CALL LIGHT AT SIDE.
--- NOTE | 2019-02-15 19:46 | NUR ---
SHIFT SUMMARY: PT CONFUSED; ORIENTED TO SELF AND FAMILY. NO C/O PAIN OR NAUSEA THIS SHIFT. PT NPO EXCEPT FOR GOLYTELY BOWEL PREP AND PO MEDS; BOWELS CLEAR; COLONOSCOPY PLANNED (DR SCHNEIDER). REPORT GIVEN TO ONCOMING RN.
--- NOTE | 2019-02-15 19:51 | NUR ---
PT TO OR PER CART/STRETCHER.
--- NOTE | 2019-02-15 20:24 | NUR ---
02/15/192023 Allegra Mao History, Chart, Medications and Allergies reviewed before start of procedure.MAC CASE WITH DR. ALONSO.Patient confirms NPO status and agrees with scheduled surgery.
--- NOTE | 2019-02-15 22:52 | NUR ---
2210 PT BACK TO ROOM 360 PER CART FROM COLONOSCOPY. PT ALERT AND ORIENTED X 1, ABLE TO FOLLOW ALL SIMPLE VERBAL COMMANDS. PTS AND SON AT SIDE. PTS IV RESTARTED AT .9NS AT 100ML/HR PER IV PUMP VIA LEFT WRIST 22 GUAGE SITE. PTS OXIMETER REAPPLIED AT 8L/M; ATTENDS DIAPER APPLIED, PT DENIES PAIN OR NAUSEA. PTS BED ALARM APPLIED, BED LOW POSITION, CALL LIGHT AT SIDE.
--- NOTE | 2019-02-15 23:06 | NUR ---
PT TOOK ALL 2100 MEDS WITHOUT ISSUE.
--- NOTE | 2019-02-16 04:45 | NUR ---
SHIFT SUMMARY: PT RESTED COMFORTABLY TILL LAST COUPLE HOURS OF SHIFT, PT PULLED IV CATHETER TUBING APART AT HUB (THIS NURSE REMOVED ENTIRE CATHETER INTACT FROM PATIENT). THIS NURSE ATTEMPTED TO REINSERT 22 GUAGE WITHOUT SUCCESS (PRESSURE DRESSING APPLIED TO SITE WITH COBAN). LIBRADO GONZALEZ RN ADVISED NEED FOR POSSIBLE PICC LINE PLACEMENT ON DAY SHIFT. PT ALERT AND ORIENTED X 1 ONLY. PT DENIES PAIN OR NAUSEA, ABLE TO FOLLOW ALL SIMPLE VERBAL COMMANDS. PTS WEARING O2 OXIMZER AT 8L. PTS BED ALARM APPLIED, BED LOW POSITION, CALL LIGHT AT SIDE.
[2019-02-16 09:54] LABS: BASOPHILS ABSOLUTE AUTO 0.26 K/mm3 (0.00-0.23); BASOPHILS PERCENT AUTO 1 % (0-2); EOSINOPHILS ABSOLUTE AUTO 0.67 K/mm3 (0.00-0.68); EOSINOPHILS PERCENT AUTO 2 % (0-6); Hematocrit 29.8 % (37.0-53.0); Hemoglobin 8.1 g/dL (13.5-17.5); IMMATURE GRAN ABSOLUTE AUTO 1.17 K/mm3 (0.00-0.10); IMMATURE GRAN PERCENT AUTO 4 % (0-1); LYMPHOCYTES ABSOLUTE AUTO 0.34 K/mm3 (0.84-5.20); LYMPHOCYTES PERCENT AUTO 1 % (21-46); MONOCYTES ABSOLUTE AUTO 1.43 K/mm3 (0.16-1.47); MONOCYTES PERCENT AUTO 5 % (4-13); Mean Corpuscular HGB 19.8 pg (26.0-34.0); Mean Corpuscular HGB Conc 27.2 g/dL (31.5-36.5); Mean Corpuscular Volume 73 fL (80-100); Mean Platelet Volume 10.6 fL (9.1-12.4); NEUTROPHILS ABSOLUTE AUTO 27.21 K/mm3 (1.96-9.15); NEUTROPHILS PERCENT AUTO 88 % (41-73); NRBC ABSOLUTE 0.21 K/mm3 (0.00-0.02); NRBC Auto 0.7 /100 WBC (0.0-0.2); Platelet Count 634 K/mm3 (150-400); RDW Coefficient Variation 27.2 % (11.7-14.2); RDW Standard Deviation 68.1 fL (35.1-46.3); Red Blood Cell Count 4.09 M/mm3 (4.30-5.90); White Blood Cell Count 31.08 K/mm3 (4.00-11.30)
[2019-02-16 10:10] LABS: Anion Gap 8 mmol/L (6-16); Blood Urea Nitrogen 38 mg/dL (8-24); Bun/Creatinine Ratio 31.4 (12.0-20.0); CO2, Blood 20 mmol/L (21-32); Chloride, Blood 109 mmol/L (98-108); Creatinine, Blood 1.21 mg/dL (0.60-1.20); Glomerular Filtration Rate >60 (60-); Glucose, Blood 108 mg/dL (70-99); Potassium, Blood 4.4 mmol/L (3.5-5.5); Sodium, Blood 137 mmol/L (136-145)
--- NOTE | 2019-02-16 18:18 | NUR ---
SHIFT SUMMARY: NO ACUTE CHANGES TO REPORT THIS SHIFT. PT ALERT; ORIENTED TO SELF. O2 @ 6L VIA OXIMIZER. FLUID RESTRICTION-1200ML/DAY. NEW IV ACCESS PLACED THIS SHIFT R/T PATIENT PULL. ONCOLOGY-HEMATOLOGY CONSULT (DR Jen GUTIERREZ) REQUESTED THIS SHIFT. IV ABX CONTINUING. WCTM.
--- NOTE | 2019-02-17 03:48 | NUR ---
SHIFT SUMMARY: 78 Y/O MALE RESTED COMFORTABLY ALL SHIFT. PT IS ALERT AND ORIENTED X 1, ABLE TO FOLLOW SIMPLE VERBAL COMMANDS AND REQUIRES FREQUENT REDIRECTION. PT ABLE TO ROLL BACK AND FORTH DURING ATTENDS DIAPERS CHANGES. PT DENIES PAIN OR NAUSEA. PTS LUNGS SOUNDS ARE DIMINISHED THROUGHOUT WITH NO COUGH NOTED. PTS BED ALARM APPLIED, BED LOW POSITION, CALL LIGHT AT SIDE.
[2019-02-17 05:16] LABS: BASOPHILS ABSOLUTE AUTO 0.26 K/mm3 (0.00-0.23); BASOPHILS PERCENT AUTO 1 % (0-2); EOSINOPHILS ABSOLUTE AUTO 1.02 K/mm3 (0.00-0.68); EOSINOPHILS PERCENT AUTO 3 % (0-6); Hematocrit 31.2 % (37.0-53.0); Hemoglobin 8.4 g/dL (13.5-17.5); IMMATURE GRAN ABSOLUTE AUTO 1.33 K/mm3 (0.00-0.10); IMMATURE GRAN PERCENT AUTO 4 % (0-1); LYMPHOCYTES ABSOLUTE AUTO 0.45 K/mm3 (0.84-5.20); LYMPHOCYTES PERCENT AUTO 1 % (21-46); MONOCYTES ABSOLUTE AUTO 1.48 K/mm3 (0.16-1.47); MONOCYTES PERCENT AUTO 5 % (4-13); Mean Corpuscular HGB 19.8 pg (26.0-34.0); Mean Corpuscular HGB Conc 26.9 g/dL (31.5-36.5); Mean Corpuscular Volume 74 fL (80-100); NEUTROPHILS ABSOLUTE AUTO 26.69 K/mm3 (1.96-9.15); NEUTROPHILS PERCENT AUTO 86 % (41-73); NRBC ABSOLUTE 0.26 K/mm3 (0.00-0.02); NRBC Auto 0.8 /100 WBC (0.0-0.2); Platelet Count 618 K/mm3 (150-400); RDW Coefficient Variation 27.4 % (11.7-14.2); RDW Standard Deviation 69.6 fL (35.1-46.3); Red Blood Cell Count 4.24 M/mm3 (4.30-5.90); White Blood Cell Count 31.23 K/mm3 (4.00-11.30)
[2019-02-17 05:20] LABS: Mean Platelet Volume 11.2 fL (9.1-12.4)
[2019-02-17 05:39] LABS: Albumin, Blood 3.1 g/dL (3.4-5.0); Albumin/Globulin Ratio 1.1 (0.8-1.8); Bilirubin, Total 0.5 mg/dL (0.1-1.0); Bun/Creatinine Ratio 28.9 (12.0-20.0); Calcium, Blood 8.3 mg/dL (8.5-10.1); Creatinine, Blood 1.28 mg/dL (0.60-1.20); Globulin, Blood 2.7 g/dL (2.2-4.0); Magnesium, Blood 2.3 mg/dL (1.6-2.4); Potassium, Blood 4.5 mmol/L (3.5-5.5); Total Protein, Blood 5.8 g/dL (6.4-8.2)
[2019-02-17 05:46] LABS: Thyroid Stimulating Hormone 2.12 uIU/mL (0.360-4.800)
--- NOTE | 2019-02-17 15:17 | NUR ---
HE HAS SLEPT OFF AND ON TODAY. HIS [id number] VISITED. HIS SON CALLED IN. HE WAS UP IN THE CHAIR FOR LUNCH. THEN HE WORKED WITH PT TO GO BACK TO BED. DENIES PAIN. MEDS GIVEN ORDERED, INCLUDING A DOSE OF IV LASIX. HE HAS BEEN MOSTLY INCONTINENT. O2 DOWN TO 3L NC INSTEAD OF 6L OXIMIZER. SATS MID-NINETIES. HE ADMITS TO MILD SOB. NO RECTAL BLEEDING. PAS ON BILATERALLY. CBG'S DC'D. NO DISTRESS. HE IS VERY WEAK AND MILDLY CONFUSED.
--- NOTE | 2019-02-17 18:06 | NUR ---
HE SATURATED HIS BRIEF AND BED. HE DID NOT ASK FOR A URINAL AT ANY TIME OR TELL US THAT HE WAS WET. HIS CONFUSION IS MILD BUT HE IS UNABLE TO TELL US HE IS WET. HE NAPPED AFTER LUNCH AND PHYSICAL THERAPY. HE HAS BEEN WIDE AWAKE THIS PAST HOUR. NO OTHER CHANGES.
--- NOTE | 2019-02-18 03:51 | NUR ---
SHIFT SUMMARY: 82 Y/O MALE RESTED QUIETLY ALL AM, PT WAS TURNED EVERY 2 HOURS AND BRIEF CHANGED BY STAFF. PT COOPERATIVE AND FOLLOWING ALL SIMPLE VERBAL COMMANDS, ALERT TO PERSON ONLY. PT DENIES PAIN OR NAUSEA. PTS HAS DECREASED EDEMA NOTED BILATERAL UPPER ARMS. PTS BED ALARM APPLIED, BED LOW POSITION, CALL LIGHT AT SIDE.
[2019-02-18 04:42] LABS: BASOPHILS ABSOLUTE AUTO 0.21 K/mm3 (0.00-0.23); BASOPHILS PERCENT AUTO 1 % (0-2); EOSINOPHILS ABSOLUTE AUTO 0.97 K/mm3 (0.00-0.68); EOSINOPHILS PERCENT AUTO 4 % (0-6); Hematocrit 31.3 % (37.0-53.0); Hemoglobin 8.4 g/dL (13.5-17.5); IMMATURE GRAN ABSOLUTE AUTO 1.27 K/mm3 (0.00-0.10); IMMATURE GRAN PERCENT AUTO 5 % (0-1); LYMPHOCYTES PERCENT AUTO 2 % (21-46); MONOCYTES ABSOLUTE AUTO 1.23 K/mm3 (0.16-1.47); MONOCYTES PERCENT AUTO 5 % (4-13); Mean Corpuscular HGB 19.7 pg (26.0-34.0); Mean Corpuscular HGB Conc 26.8 g/dL (31.5-36.5); Mean Corpuscular Volume 74 fL (80-100); NEUTROPHILS ABSOLUTE AUTO 21.84 K/mm3 (1.96-9.15); NEUTROPHILS PERCENT AUTO 84 % (41-73); NRBC Auto 1.2 /100 WBC (0.0-0.2); Platelet Count 571 K/mm3 (150-400); RDW Coefficient Variation 27.5 % (11.7-14.2); RDW Standard Deviation 70.7 fL (35.1-46.3); Red Blood Cell Count 4.26 M/mm3 (4.30-5.90); White Blood Cell Count 25.92 K/mm3 (4.00-11.30)
[2019-02-18 04:57] LABS: Mean Platelet Volume 10.5 fL (9.1-12.4)
[2019-02-18 05:06] LABS: Alanine Aminotransfer (ALT/SGP 21 U/L (12-78); Albumin/Globulin Ratio 1.2 (0.8-1.8); Alk Phos 126 U/L (50-136); Anion Gap 5 mmol/L (6-16); Aspartate Aminotrans (AST/SGOT 13 U/L (12-37); Bilirubin, Total 0.7 mg/dL (0.1-1.0); Blood Urea Nitrogen 31 mg/dL (8-24); Bun/Creatinine Ratio 26.5 (12.0-20.0); CO2, Blood 26 mmol/L (21-32); Calcium, Blood 8.4 mg/dL (8.5-10.1); Chloride, Blood 109 mmol/L (98-108); Creatinine, Blood 1.17 mg/dL (0.60-1.20); Globulin, Blood 2.6 g/dL (2.2-4.0); Glomerular Filtration Rate >60 (60-); Glucose, Blood 90 mg/dL (70-99); Magnesium, Blood 2.1 mg/dL (1.6-2.4); Potassium, Blood 4.3 mmol/L (3.5-5.5); Sodium, Blood 140 mmol/L (136-145); Total Protein, Blood 5.6 g/dL (6.4-8.2)
--- NOTE | 2019-02-18 13:01 | NUR ---
HE HAS HAD A GOOD MORNING. HE IS MORE ALERT TODAY. HE SAT ON THE SIDE OF THE BED FOR BREAKFAST. EDEMA LESS TODAY. HEARD FINE RALES T/O THOUGH AND NOTIFIED . O2 3L NC.
--- NOTE | 2019-02-18 18:19 | NUR ---
HE HAS BEEN MORE ALERT TODAY. HE IS UP IN THE CHAIR. APPETITE GOOD. WORKED WITH PT THIS AFTERNOON. FAMILY VISITED AND HOPES FOR HIM TO GO TO REHAB BEFORE GOING HOME. HIS L LEG IS BOWED SINCE AGE 6. FAMILY PREFERS [facility] OVER [place]. O2 3L. NAPPED 1/2 THE DAY. BP HIGH THIS MORNING BEFORE AM ANTIHYPERTENSIVE MEDICATIONS, THEN BETTER.
--- NOTE | 2019-02-19 03:54 | NUR ---
SHIFT SUMMARY: 78 Y/O MALE RESTED COMFORTABLY ALL SHIFT IN BED. PT HAPPY AND COOPERATIVE, ALERT AND ORIENTED X 2, ABLE TO FOLLOW ALL SIMPLE VERBAL COMMANDS. PT DENIES PAIN OR NAUSEA, WEARING O2 AT 2L/M PER NASAL CANNULA. PTS BED ALARM APPLIED, BED LOW POSITION, CALL LIGHT AT SIDE.
[2019-02-19 05:29] LABS: BASOPHILS ABSOLUTE AUTO 0.29 K/mm3 (0.00-0.23); BASOPHILS PERCENT AUTO 1 % (0-2); EOSINOPHILS ABSOLUTE AUTO 0.99 K/mm3 (0.00-0.68); EOSINOPHILS PERCENT AUTO 3 % (0-6); Hematocrit 32.3 % (37.0-53.0); Hemoglobin 8.6 g/dL (13.5-17.5); IMMATURE GRAN ABSOLUTE AUTO 1.53 K/mm3 (0.00-0.10); IMMATURE GRAN PERCENT AUTO 5 % (0-1); LYMPHOCYTES ABSOLUTE AUTO 0.35 K/mm3 (0.84-5.20); LYMPHOCYTES PERCENT AUTO 1 % (21-46); MONOCYTES ABSOLUTE AUTO 1.51 K/mm3 (0.16-1.47); MONOCYTES PERCENT AUTO 5 % (4-13); Mean Corpuscular HGB 19.8 pg (26.0-34.0); Mean Corpuscular HGB Conc 26.6 g/dL (31.5-36.5); Mean Corpuscular Volume 74 fL (80-100); NEUTROPHILS ABSOLUTE AUTO 25.81 K/mm3 (1.96-9.15); NEUTROPHILS PERCENT AUTO 85 % (41-73); NRBC ABSOLUTE 0.16 K/mm3 (0.00-0.02); NRBC Auto 0.5 /100 WBC (0.0-0.2); Platelet Count 569 K/mm3 (150-400); RDW Coefficient Variation 27.9 % (11.7-14.2); Red Blood Cell Count 4.35 M/mm3 (4.30-5.90); White Blood Cell Count 30.48 K/mm3 (4.00-11.30)
[2019-02-19 05:39] LABS: Mean Platelet Volume 10.8 fL (9.1-12.4)
[2019-02-19 05:46] LABS: Anion Gap 3 mmol/L (6-16); Blood Urea Nitrogen 28 mg/dL (8-24); Bun/Creatinine Ratio 26.9 (12.0-20.0); CO2, Blood 27 mmol/L (21-32); Calcium, Blood 8.4 mg/dL (8.5-10.1); Chloride, Blood 108 mmol/L (98-108); Creatinine, Blood 1.04 mg/dL (0.60-1.20); Glomerular Filtration Rate >60 (60-); Glucose, Blood 93 mg/dL (70-99); Potassium, Blood 4.4 mmol/L (3.5-5.5); Sodium, Blood 138 mmol/L (136-145)
--- NOTE | 2019-02-19 10:18 | NUR ---
AM NOTE: RECIEVED REPORT FROM RUPERT PEREZ. NO ACUTE CHANGES IN PT THIS AM. UP IN CHAIR FOR MEALS. NO COMPAINTS OF PAIN. ON 3L OF O2 NASAL CANNULA. GAVE REPORT TO SANDRA PEREZ 1030.
--- NOTE | 2019-02-19 18:36 | NUR ---
SHIFT SUMMARY PT HAS BEEN SLEEPING A LOT OF THE SHIFT. NO COMPLAINTS OF PAIN THIS SHIFT. PT DOES NOT HAVE MUCH OF AN APPETITE. PLANS FOR SNF WHEN AVAILABLE. NO ACUTE CHANGES THIS SHIFT. CALL LIGHT IN REACH. WILL CONTINUE TO MONITOR AND REPORT TO ONCOMING RN.
--- NOTE | 2019-02-20 04:14 | NUR ---
SHIFT SUMMARY: 78 Y/O MALE RESTED COMFORTABLY ALL EVENING AND ATTENDS DIAPER WAS CHANGED AND PT REPOSITIONED EVERY 2 HOURS (TOLERATED WELL). PT HAPPY AND COOEPRATIVE, ABLE FOLLOW VERY SIMPLE VERBAL COMMANDS, NOT ATTEMPTING TO CLIMB OOB. PT HAS DECREASED EDEMA NOTED TO BILATERAL UPPER ARMS. NO PRESSURE ULCERS NOTED. PT DENIES PAIN OR NAUSEA, BED ALARM APPLIED, BED LOW POSITION, CALL LIGHT AT SIDE. PT WORE O2 AT 2L/M PER NASAL CANNULA ALL NIGHT. PTS AND SON INITIALLY WERE AT SIDE BEGINNING OF SHIFT. PT IS TENTATIVELY SCHEDULED TO GO LOCAL SNF FOR REHAB AND THEN FAMILY DESIRES TO BRING HIM BACK HOME.
[2019-02-20] MEDS ORDERED: OMEPRAZOLE MAGN20 MG PO (16:08)
== END 2019-02-20 17:40 | DRG 378 ==
LOC: ER 14:16 → MEDS 16:44
PROVIDERS: Emergency Medicine; Internal Medicine Gastroenterology; ADMIT Internal Medicine
PROC: 30233N1 Transfusion of Nonautologous Red Blood Cells into Peripheral Vein, Percutaneous Approach (ICD-10-PCS; principal; 2019-02-12 17:15)
PROC: 0DJ08ZZ Inspection of Upper Intestinal Tract, Via Natural or Artificial Opening Endoscopic (ICD-10-PCS; 2019-02-12 17:15)
PROC: 0DBK8ZX Excision of Ascending Colon, Via Natural or Artificial Opening Endoscopic, Diagnostic (ICD-10-PCS; 2019-02-15)
PROC: 0DBL8ZX Excision of Transverse Colon, Via Natural or Artificial Opening Endoscopic, Diagnostic (ICD-10-PCS; 2019-02-15)
PROC: 0DBN8ZX Excision of Sigmoid Colon, Via Natural or Artificial Opening Endoscopic, Diagnostic (ICD-10-PCS; 2019-02-15)
PROC: 0DBM8ZX Excision of Descending Colon, Via Natural or Artificial Opening Endoscopic, Diagnostic (ICD-10-PCS; 2019-02-15)
DX: K92.1 Melena (principal); I50.32 Chronic diastolic (congestive) heart failure; I13.0 Hypertensive heart and chronic kidney disease with heart failure and stage 1 through stage 4 chronic kidney disease, or unspecified chronic kidney disease; J44.9 Chronic obstructive pulmonary disease, unspecified; Z87.891 Personal history of nicotine dependence; E11.22 Type 2 diabetes mellitus with diabetic chronic kidney disease; Z79.82 Long term (current) use of aspirin; G47.33 Obstructive sleep apnea (adult) (pediatric); D46.9 Myelodysplastic syndrome, unspecified; M10.9 Gout, unspecified; N18.3 Chronic kidney disease, stage 3 (moderate); Z99.81 Dependence on supplemental oxygen; Z95.0 Presence of cardiac pacemaker; F34.1 Dysthymic disorder; K57.30 Diverticulosis of large intestine without perforation or abscess without bleeding; K58.9 Irritable bowel syndrome, unspecified; K64.8 Other hemorrhoids; D12.6 Benign neoplasm of colon, unspecified; E83.119 Hemochromatosis, unspecified
CPT/HCPCS: 36415; 36416; 36430; 74177; 80048; 80053; 82140; 82607; 82668; 82728; 82746; 82947; 83540; 83550; 83735; 83880; 84443; 85014; 85018; 85025; 85045; 85610; 85651; 85730; 86850; 86900; 86901; 86923; 88305; 93005; 93010; 94762; 96365-59; 97110; 97116; 97162; 97530; 99285-25; C9113; J0696; J0744; J1940; J2405; J2704; J2916; J7030; J7050; J7120; P9016; Q9967

== ENCOUNTER 2020-10-21 11:32 | Emergency (ER) | payer MEDICARE, OTHER ==
[~2020-10-21] VITALS: Ht 170.2 cm; Wt 72.6 kg
[~2020-10-21 11:32] MED LIST changes: +OMEPRAZOLE MAGN20 MG PO; +VITAMIN D5000 UNIT PO
[2020-10-21 12:40] LABS: BASOPHILS ABSOLUTE AUTO 0.25 K/mm3 (0.00-0.23); BASOPHILS PERCENT AUTO 1 % (0-2); EOSINOPHILS ABSOLUTE AUTO 0.67 K/mm3 (0.00-0.68); EOSINOPHILS PERCENT AUTO 4 % (0-6); Hematocrit 44.9 % (37.0-53.0); Hemoglobin 11.8 g/dL (13.5-17.5); IMMATURE GRAN ABSOLUTE AUTO 0.19 K/mm3 (0.00-0.10); IMMATURE GRAN PERCENT AUTO 1 % (0-1); LYMPHOCYTES ABSOLUTE AUTO 0.46 K/mm3 (0.84-5.20); LYMPHOCYTES PERCENT AUTO 3 % (21-46); MONOCYTES PERCENT AUTO 3 % (4-13); Mean Corpuscular HGB 17.2 pg (26.0-34.0); Mean Corpuscular HGB Conc 26.3 g/dL (31.5-36.5); Mean Corpuscular Volume 66 fL (80-100); NEUTROPHILS ABSOLUTE AUTO 16.36 K/mm3 (1.96-9.15); NEUTROPHILS PERCENT AUTO 88 % (41-73); NRBC ABSOLUTE 0.02 K/mm3 (0.00-0.02); NRBC Auto 0.1 /100 WBC (0.0-0.2); Platelet Count 491 K/mm3 (150-400); RDW Coefficient Variation 23.1 % (11.7-14.2); RDW Standard Deviation 48.2 fL (35.1-46.3); Red Blood Cell Count 6.86 M/mm3 (4.30-5.90); White Blood Cell Count 18.53 K/mm3 (4.00-11.30)
[2020-10-21] MEDS ORDERED: POTCHL20ER PO (12:42)
[2020-10-21] MEDS ORDERED: FURO40 PO (12:42)
[2020-10-21] MEDS ORDERED: Norco 5-325 Ta1 EACH PO (12:43)
[2020-10-21 13:02] LABS: Alanine Aminotransfer (ALT/SGP 28 U/L (12-78); Albumin, Blood 3.8 g/dL (3.4-5.0); Albumin/Globulin Ratio 1.2 (0.8-1.8); Alk Phos 163 U/L (50-136); Anion Gap 6 mmol/L (6-16); Aspartate Aminotrans (AST/SGOT 39 U/L (12-37); Bilirubin, Total 1.2 mg/dL (0.1-1.0); Blood Urea Nitrogen 43 mg/dL (8-24); Bun/Creatinine Ratio 22.9 (12.0-20.0); CO2, Blood 26 mmol/L (21-32); Calcium, Blood 8.8 mg/dL (8.5-10.1); Chloride, Blood 103 mmol/L (98-108); Creatinine, Blood 1.88 mg/dL (0.60-1.20); Globulin, Blood 3.1 g/dL (2.2-4.0); Glomerular Filtration Rate 37 (60-); Glucose, Blood 118 mg/dL (70-99); Potassium, Blood 4.9 mmol/L (3.5-5.5); Sodium, Blood 135 mmol/L (136-145); Total Protein, Blood 6.9 g/dL (6.4-8.2)
[2020-10-21 13:03] LABS: Troponin I <0.015 ng/mL (0.000-0.040)
== END 2020-10-21 15:04 | disposition home or self-care (01) ==
LOC: ER 11:32
PROVIDERS: Emergency Medicine
DX: I49.3 Ventricular premature depolarization (principal); J44.9 Chronic obstructive pulmonary disease, unspecified; I13.0 Hypertensive heart and chronic kidney disease with heart failure and stage 1 through stage 4 chronic kidney disease, or unspecified chronic kidney disease; E11.22 Type 2 diabetes mellitus with diabetic chronic kidney disease; N18.9 Chronic kidney disease, unspecified; I50.30 Unspecified diastolic (congestive) heart failure; Z88.8 Allergy status to other drugs, medicaments and biological substances; Z95.0 Presence of cardiac pacemaker; Z79.899 Other long term (current) drug therapy
CPT/HCPCS: 71046; 80053; 83690; 83735; 83880; 84484; 85025; 93005; 93010; 99285-25